=== PATIENT | male | born 1950 | race Hispanic/Latino ===

== ENCOUNTER → 2019-04-21 | Outpatient (CLI) | payer MEDICARE ==
--- NOTE | 2019-04-21 12:11 | Diagnostic Imaging Report ---
EXAM: CT Abdomen and Pelvis WITHOUT contrast INDICATION: Renal calculus. COMPARISON: None. TECHNIQUE: Abdomen and pelvis were scanned utilizing a multidetector helical scanner from the lung base to the pubic symphysis without administration of IV contrast. Absence of intravenous contrast decreases sensitivity for detection of focal lesions and vascular pathology. Coronal and sagittal reformations were obtained. Routine protocol was performed. IV CONTRAST: None. ORAL CONTRAST: Water RADIATION DOSE: Total DLP: 364.2 mGy*cm Dose modulation, iterative reconstruction, and/or weight based adjustment of the mA/kV was utilized to reduce the radiation dose to as low as reasonably achievable. COMPLICATIONS: None FINDINGS: LINES and TUBES: None. LOWER THORAX: Coronary atherosclerosis. HEPATOBILIARY: No focal hepatic lesions. No biliary ductal dilation. GALLBLADDER: No radio-opaque stones or sludge. No wall thickening. SPLEEN: No splenomegaly. PANCREAS: No focal masses or ductal dilatation. ADRENALS: No adrenal nodules KIDNEYS/URETERS: No hydronephrosis. No evidence of solid mass. There is a 2 mm left mid pole renal stone and a 7 mm left lower pole renal stone. Mild nonspecific bilateral perinephric stranding. GI TRACT: No abnormal distention, wall thickening, or evidence of bowel obstruction. Appendix is normal. Scattered colonic diverticulosis without CT evidence of diverticulitis. PELVIC ORGANS/BLADDER: Left bladder stone measures 2.9 cm. The bladder appears mildly thick walled. The prostate is markedly enlarged, measuring up to 5.7 x 6.6 cm x 6.4 cm (TV x AP x SI). Apparent soft tissue along the posterior bladder likely represents anterior indentation by the prostate. LYMPH NODES: No lymphadenopathy. VESSELS: There is moderate atherosclerotic disease in the aorta and major arterial branches. PERITONEUM / RETROPERITONEUM: No free air or fluid. BONES: No acute osseous abnormality. No suspicious lytic or blastic lesions. SOFT TISSUES: Unremarkable. IMPRESSION: Nonobstructing left-sided renal stones, measuring up to 7 mm. Left bladder stone, measuring up to 2.9 cm. Prostatomegaly measuring up to 6.6 cm. Mild wall thickening of the bladder may represent bladder outlet obstruction. Apparent soft tissue along the posterior bladder likely represents anterior indentation by the prostate. If there is clinical concern for bladder mass, CT hematuria or cystoscopy may be considered. Signed by: Dr. Adamaris Buchanan MD on 04/21/2019 12:08 PM
== END ==
LOC: CT 11:11
PROVIDERS: ATTEND Urology
DX: N21.0 Calculus in bladder (principal)
CPT/HCPCS: 74176